=== PATIENT | male | born 1980 ===

== ENCOUNTER 2021-12-01 08:33 | Outpatient (CLI) | payer OTHER | END 2021-12-01 08:35 | disposition home or self-care (01) | LOC: SONOGRAMA 08:33 | PROVIDERS: ATTEND Pathology Anatomic Pathology & Clinical Pathology | DX: E04.2 Nontoxic multinodular goiter (principal) ==

== ENCOUNTER 2022-07-20 07:50 | Outpatient (CLI) | payer OTHER | END 2022-07-20 07:54 | disposition home or self-care (01) | LOC: SONOGRAMA 07:50 | PROVIDERS: ATTEND Pathology Anatomic Pathology & Clinical Pathology | DX: C73 Malignant neoplasm of thyroid gland (principal) ==